=== PATIENT | male | born 1985 | race African-American/Black ===

== ENCOUNTER 2018-08-10 16:50 | Emergency (ER) | payer MEDICAID ==
[~2018-08-10] VITALS: Ht 188 cm; Wt 122.0 kg
[2018-08-10] MEDS: HYDROCODONE/ACETAMINOPHEN 5/325MG TABLET PO PRN ×2 (19:19→19:22)
[2018-08-10 20:23] VITALS: BP 134/77
== END 2018-08-10 20:32 | disposition home or self-care (01) ==
LOC: ER 17:48
DX: M54.2 Cervicalgia (principal); M54.9 Dorsalgia, unspecified; J45.909 Unspecified asthma, uncomplicated; F12.10 Cannabis abuse, uncomplicated
CPT/HCPCS: 99283

== ENCOUNTER 2018-11-20 11:10 | Emergency (ER) | payer MEDICAID ==
[~2018-11-20] VITALS: Ht 188 cm; Wt 116.0 kg
[2018-11-20] MEDS: IBUPROFEN 800MG TABLET PO NR ×2 (12:34→12:36)
[2018-11-20 12:36] VITALS: BP 113/68
== END 2018-11-20 13:39 | disposition home or self-care (01) ==
LOC: ER 11:10
DX: M51.86 Other intervertebral disc disorders, lumbar region (principal); J45.909 Unspecified asthma, uncomplicated; F12.10 Cannabis abuse, uncomplicated; Z87.828 Personal history of other (healed) physical injury and trauma
CPT/HCPCS: 99283

== ENCOUNTER 2018-12-05 13:47 | Emergency (ER) | payer MEDICAID ==
[~2018-12-05] VITALS: Ht 188 cm; Wt 113.0 kg
[2018-12-05 16:38] LABS: BASOPHILS % 0.6 % (0.0-2.0); EOSINOPHILS % 2.6 % (0.0-5.0); HEMOGLOBIN. 13.9 g/dL (14.0-18.0); LYMPHOCYTES % 29.6 % (20.0-50.0); MEAN CORPUSCULAR HEMOGLOBIN 30.2 pg (28.0-32.0); MEAN CORPUSCULAR VOLUME 89.2 fL (80.0-94.0); MEAN PLATELET VOLUME 7.7 fl (7.4-10.4); MONOCYTES % 8.1 % (2.0-8.0); NEUTROPHILS % 59.1 % (40.0-76.0); PLATELET 244 x1000/uL (130-400); RED BLOOD CELL COUNT 4.59 mill/uL (4.7-6.1); RED CELL DISTRIBUTION WIDTH 12.6 % (11.6-14.6)
[2018-12-05 16:41] LABS: CHLORIDE 105 mEq/L (98-107)
[2018-12-05 16:57] VITALS: BP 116/57
== END 2018-12-05 17:57 | disposition home or self-care (01) ==
LOC: ER 13:47
DX: R07.89 Other chest pain (principal); J45.909 Unspecified asthma, uncomplicated; F12.10 Cannabis abuse, uncomplicated
CPT/HCPCS: 36415; 71045; 93005; 99284

== ENCOUNTER 2019-12-13 20:43 | Emergency (ER) | payer MEDICAID ==
[~2019-12-13] VITALS: Ht 188 cm; Wt 109.4 kg
[2019-12-13 20:57] VITALS: BP 126/77
== END 2019-12-14 01:20 | disposition left against medical advice (07) ==
LOC: ER 20:43
DX: R51 Headache (principal); Z53.21 Procedure and treatment not carried out due to patient leaving prior to being seen by health care provider